=== PATIENT | female | born 1940 | race Caucasian/White ===

== ENCOUNTER → 2018-07-29 | Outpatient (REF) | payer MEDICARE ==
[~2018-07-29] VITALS: Ht 162.6 cm; Wt 65.3 kg
[~2018-07-29] MED LIST: ADVAIR DISKU IN; ALTOPREV40 MG PO; ASPIRIN LOW DOS81 MG PO; CALCIUM-VITAMIN D PO; CALCIUM600 M1 PO; CIPROFLOXACN500 MG PO; FISH OIL1000 MG PO; FOLIC ACID1 MG PO; HYDROCO/APAP1 TA9 PO; LEVOTHYROXINE25 MCG PO; LOVASTATIN40 MG PO; NAUSEA MED; OXYCODONE HCL15 MG PO; ZESTRIL10 M1 PO; [UNRECOGNIZED DRUG - MIXTURE] PO; [UNRECOGNIZED DRUG - OTHER] PO; [UNRECOGNIZED DRUG - OTHER] PO
[2018-07-29 15:32] VITALS: BP 135/55
== END | disposition home or self-care (01) ==
LOC: INF 15:12
PROVIDERS: ATTEND Internal Medicine
DX: C34.80 Malignant neoplasm of overlapping sites of unspecified bronchus and lung (principal); E86.0 Dehydration

== ENCOUNTER 2018-08-01 10:24 | Outpatient (REF) | payer MEDICARE ==
[~2018-08-01 10:24] MED LIST changes: -ALTOPREV40 MG PO; -FOLIC ACID1 MG PO; -HYDROCO/APAP1 TA9 PO; -NAUSEA MED; -OXYCODONE HCL15 MG PO
[2018-08-01 12:53] VITALS: BP 153/56
[2018-08-01 13:34] LABS: ALBUMIN 3.8 g/dL (3.2-5.0); ALKALINE PHOSPHATASE 104 u/l (38-126); ANION GAP 12 (6-22 (CALC)); BILIRUBIN, TOTAL 0.3 mg/dL (0.0-1.4); BUN 13 mg/dL (8-23); BUN/CREATININE RATIO 22 (12-20 (CALC)); CARBON DIOXIDE 26 mmol/l (22-30); CHLORIDE 103 mmol/l (95-108); CREATININE 0.6 mg/dL (0.5-1.0); GFR > 60 ML/MIN (>=60 (CALC)); GFR FOR AFR.AMER. > 60 ML/MIN (>=60 (CALC)); POTASSIUM 4.7 mmol/l (3.5-5.1); SGOT/AST 21 u/l (9-36); SODIUM 137 mmol/l (137-146); TOTAL PROTEIN 6.6 g/dL (6.3-8.2)
== END 2018-08-01 12:45 | disposition home or self-care (01) ==
LOC: INF 10:24
PROVIDERS: ATTEND Internal Medicine
DX: C34.80 Malignant neoplasm of overlapping sites of unspecified bronchus and lung (principal); E86.0 Dehydration

== ENCOUNTER 2018-08-11 08:35 | Day surgery (SDC) | payer MEDICARE ==
[2018-08-11] MEDS ORDERED: ALTOPREV40 MG PO (09:05)
[2018-08-11] MEDS ORDERED: FOLIC ACID1 MG PO (09:05)
[2018-08-11] MEDS ORDERED: NAUSEA MED (09:06)
[2018-08-11] MEDS ORDERED: OXYCODONE HCL15 MG PO (09:06)
[2018-08-11] MEDS ORDERED: HYDROCO/APAP1 TA9 PO (09:07)
[2018-08-11 12:42] VITALS: BP 113/83
== END 2018-08-11 13:15 | disposition home or self-care (01) ==
LOC: PO 08:35 → ORM 08:35
PROVIDERS: ATTEND Surgery
PROC: 0JH60XZ Insertion of Tunneled Vascular Access Device into Chest Subcutaneous Tissue and Fascia, Open Approach (ICD-10-PCS; principal; 2018-08-11)
PROC: 02HV33Z Insertion of Infusion Device into Superior Vena Cava, Percutaneous Approach (ICD-10-PCS; 2018-08-11)
PROC: B518ZZA Fluoroscopy of Superior Vena Cava, Guidance (ICD-10-PCS; 2018-08-11)
DX: C34.90 Malignant neoplasm of unspecified part of unspecified bronchus or lung (principal); I10 Essential (primary) hypertension; E03.9 Hypothyroidism, unspecified; J44.9 Chronic obstructive pulmonary disease, unspecified

== ENCOUNTER 2018-10-13 18:44 | Emergency (ER) | payer MEDICARE ==
[~2018-10-13] VITALS: Ht 162.6 cm; Wt 59.0 kg
[~2018-10-13 18:44] MED LIST changes: +ALTOPREV40 MG PO; +FOLIC ACID1 MG PO; +HYDROCO/APAP1 TA9 PO; +NAUSEA MED; +OXYCODONE HCL15 MG PO
--- NOTE | 2018-10-13 19:10 | NUR ---
BREATHING TREATMENT GIVEN BACK TO BACK. BREATHING TECH FOR GOOD DEPOSITION TO THE LUNGS.
[2018-10-13 19:30] LABS: IMMATURE GRANULOCYTES 0.6 % (0.0-5.0); MEAN CELL VOLUME 95.4 fL CALC (80.0-100.0); MEAN CORPUSCULAR HGB 29.9 pG CALC (26.0-32.0); MEAN CORPUSCULAR HGB CONC 31.3 g/L CALC (32.0-36.0); NEUT# 7.91 thou/uL (2.00-7.15); RED BLOOD COUNT 3.28 mill/uL (4.20-5.60); RED CELL DISTRI WIDTH 18.5 % (11.5-15.5)
[2018-10-13 19:46] LABS: ACT PARTIAL THROMBO TIME 29.7 SECONDS (20.0-32.5); D-DIMER 0.5 mg/L (0.19-0.60); PROTHROMBIN TIME 10.6 SECONDS (9.0-12.5)
[2018-10-13 19:49] LABS: ALBUMIN 3.9 g/dL (3.2-5.0); ALKALINE PHOSPHATASE 67 u/l (38-126); BUN 9 mg/dL (8-23); BUN/CREATININE RATIO 22 (12-20 (CALC)); CARBON DIOXIDE 25 mmol/l (22-30); CHLORIDE 95 mmol/l (95-108); CREATININE 0.4 mg/dL (0.5-1.0); GFR > 60 ML/MIN (>=60 (CALC)); GFR FOR AFR.AMER. > 60 ML/MIN (>=60 (CALC)); SGOT/AST 25 u/l (9-36); TOTAL PROTEIN 6.2 g/dL (6.3-8.2)
[2018-10-13 19:52] LABS: ANION GAP 14 (6-22 (CALC)); BILIRUBIN, TOTAL 1.1 mg/dL (0.0-1.4); SODIUM 130 mmol/l (137-146)
[2018-10-13 20:06] LABS: HEMATOCRIT 31.3 % (37.0-47.0); HEMOGLOBIN 9.8 g/dl (12.0-16.0)
[2018-10-13] MEDS ORDERED: PROAIR HFA108 MCG/AC IN (20:20)
[2018-10-13] MEDS ORDERED: MUCINEX MAXIM1200 MG PO (20:20)
[2018-10-13 20:55] VITALS: BP 112/56
== END 2018-10-13 20:55 | disposition home or self-care (01) ==
LOC: ED 18:44
PROVIDERS: Family Medicine
DX: J44.1 Chronic obstructive pulmonary disease with (acute) exacerbation (principal); I10 Essential (primary) hypertension; Z99.81 Dependence on supplemental oxygen; R06.02 Shortness of breath

== ENCOUNTER 2019-08-18 | Emergency (ER) | payer MEDICARE ==
[~2019-08-18] MED LIST changes: +MUCINEX MAXIM1200 MG PO; +PROAIR HFA108 MCG/AC IN
== END 2019-08-18 16:15 | disposition home or self-care (01) ==
DX: K46.9 Unspecified abdominal hernia without obstruction or gangrene (principal); I10 Essential (primary) hypertension

== ENCOUNTER 2019-09-17 | Emergency (ER) | payer MEDICARE ==
[2019-09-17 10:29] LABS: IMMATURE GRANULOCYTES 0.4 % (0.0-5.0); MEAN CELL VOLUME 90.7 fL CALC (80.0-100.0); MEAN CORPUSCULAR HGB 27.1 pG CALC (26.0-32.0); MEAN CORPUSCULAR HGB CONC 29.9 g/dL CAL (32.0-36.0); NEUT# 9.13 thou/uL (2.00-7.15); RED BLOOD COUNT 3.65 mill/uL (4.20-5.60); RED CELL DISTRI WIDTH 14.6 % (11.5-15.5)
[2019-09-17 10:34] LABS: HEMATOCRIT 33.1 % (37.0-47.0); HEMOGLOBIN 9.9 g/dl (12.0-16.0)
[2019-09-17 11:01] LABS: ALBUMIN 3.9 g/dL (3.2-5.0); ANION GAP 11 (6-22 (CALC)); BILIRUBIN, TOTAL 0.8 mg/dL (0.0-1.4); BUN 15 mg/dL (8-23); BUN/CREATININE RATIO 27 (12-20 (CALC)); CARBON DIOXIDE 28 mmol/l (22-30); CHLORIDE 95 mmol/l (95-108); CREATININE 0.5 mg/dL (0.5-1.0); GFR > 60 ML/MIN (>=60 (CALC)); GFR FOR AFR.AMER. > 60 ML/MIN (>=60 (CALC)); LIPASE 40 u/l (23-300); POTASSIUM 3.9 mmol/l (3.5-5.1); SODIUM 131 mmol/l (137-146); TOTAL PROTEIN 6.9 g/dL (6.3-8.2)
[2019-09-17 11:25] LABS: ALKALINE PHOSPHATASE 105 u/l (38-126); SGOT/AST 65 u/l (9-36)
== END 2019-09-17 12:55 | disposition home or self-care (01) ==
PROVIDERS: Family Medicine
DX: K43.9 Ventral hernia without obstruction or gangrene (principal); I10 Essential (primary) hypertension; C34.90 Malignant neoplasm of unspecified part of unspecified bronchus or lung; C78.7 Secondary malignant neoplasm of liver and intrahepatic bile duct
CPT/HCPCS: Q9967